=== PATIENT | male | born 1980 | race Caucasian/White ===

== ENCOUNTER 2017-01-14 02:19 | Emergency (ER) | payer OTHER ==
--- NOTE | ~2017-01-14 | ER ---
PATIENT'S NAME: ROSETTE HARRIS [facility] AGE: 36 Y [address] ROOM: [place] [address] LOCATION: [facility] ADMIT DATE: 01/14/2017 ER/Outpatient Report DISCHARGE DATE: 01/14/2017 FAMILY PHYSICIAN: PHYSICIAN, NO ATTENDING PHYSICIAN: Tevin Lockett CHIEF COMPLAINT: Low back pain. HISTORY OF PRESENT ILLNESS: On the morning of the around 3:30 am. The patient was pushing a large cart at work when it hit a crack in the concrete which caused him to some strain his low back. He tried using ibuprofen and some relaxation techniques, but that has not helped and he was unable to perform his duties today. He presented with health community relations representative from his place of work. He states the pain is on both sides in his low back and is usually a dull ache, but occasionally will be sharp and radiate down into his upper portion of the back of both legs. He denies any problems with bowel or bladder habits. No other trauma, no other issues walking. PAST MEDICAL HISTORY: Documented on the record and reviewed by me. SOCIAL HISTORY: Documented on the record and reviewed by me. MEDICATIONS: Documented on the record and reviewed by me. ALLERGIES: DOCUMENTED ON THE RECORD AND REVIEWED BY ME. REVIEW OF SYSTEMS: All systems reviewed and negative except as noted in the HPI. PHYSICAL EXAMINATION: VITAL SIGNS: Blood pressure 127/77, pulse is 79, respiratory rate is 18, temperature 97.2, SpO2 is 97% on room air. Pain is rated 6/10. GENERAL: Age-appropriate male. No obvious pain or distress. Resting comfortably on exam table. NEUROLOGIC: Awake and alert. GCS 15. No obvious abnormalities. Normal gait. HEENT: Normocephalic, atraumatic. Eyes, PERRL, oropharynx clear. NECK: Supple. Trachea is midline. CHEST: Heart is regular rate and rhythm with no murmurs. PATIENT'S NAME: ROSETTE HARRIS [facility] AGE: 36 Y [address] ROOM: [place] [address] LOCATION: [facility] ADMIT DATE: 01/14/2017 ER/Outpatient Report DISCHARGE DATE: 01/14/2017 FAMILY PHYSICIAN: PHYSICIAN, NO ATTENDING PHYSICIAN: Tevin Lockett LUNGS: Clear to auscultation bilaterally. No rhonchi, wheezes, or rales. ABDOMEN: Soft, nontender, and nondistended. No rebound or guarding. BACK: Normal to inspection with no spinal tenderness. There is paraspinal tenderness over the lumbar region. No deformities. No CVA tenderness. EXTREMITIES: Warm and well perfused. No appreciable weakness, deformities, or edema. SKIN: Warm, dry, and intact without rash. LABORATORY DATA AND X-RAYS: None. IMPRESSION: Acute low back injury. EMERGENCY DEPARTMENT COURSE: The patient was seen and evaluated as above. Not consistent with cauda equina syndrome. The patient was given some Valium for his symptoms. Recommend no further work today. The patient is to return with activity as tolerated for his next shift. He was given a prescription for Valium for same. Recommend continue Tylenol and ibuprofen alternated around the clock in addition to physical therapy as tolerated. Follow up with PCP, return as needed. MD SANTY HUDSON/jose j /[id number] d: 01/14/17527 t: 01/17/17801, OUTPATIENT REPORT
== END 2017-01-14 02:57 | disposition disaster alternative care site (69) ==
LOC: GACC 02:19
DX: S39.92XA Unspecified injury of lower back, initial encounter (principal); W22.8XXA Striking against or struck by other objects, initial encounter